=== PATIENT | female | born 1960 | race African-American/Black ===

== ENCOUNTER 2023-04-10 21:58 | Emergency (ER) | payer OTHER ==
[~2023-04-10] VITALS: Ht 170.2 cm; Wt 75.0 kg
[2023-04-10 22:04] VITALS: O2SAT 98
[2023-04-11] MEDS ORDERED: KETOROLAC 60MG/2ML VIAL IM ONE (01:00)
[2023-04-11] MEDS ORDERED: TRAMADOL 50MG TABLET PO ONE (01:00)
[2023-04-11] MEDS ORDERED: TRAMADOL 50MG TABLET PO NR (01:45)
[2023-04-11] MEDS ORDERED: KETOROLAC 60MG/2ML VIAL IM NR (01:45)
[2023-04-11] MEDS ORDERED: IBUP-2029 MT (02:26)
[2023-04-11 04:10] VITALS: BP 110/77; PULSE 97; RESP 18; TEMP 98.7
== END 2023-04-11 04:14 | disposition home or self-care (01) ==
LOC: ER 21:58
DX: S52.501A Unspecified fracture of the lower end of right radius, initial encounter for closed fracture (principal); I10 Essential (primary) hypertension; W18.30XA Fall on same level, unspecified, initial encounter; Y93.89 Activity, other specified; Y92.89 Other specified places as the place of occurrence of the external cause; Y99.8 Other external cause status
CPT/HCPCS: 29125; 99285; 73030; 73110; 96372; J1885; Z7610